=== PATIENT | female | born 1970 ===

== ENCOUNTER 2021-10-01 06:33 | Day surgery (SDC) | payer BC, OTHER ==
--- NOTE | 2021-09-30 15:28 | RAD REPORT ---
EXAM DESCRIPTION: RAD - Chest Pa And Lat (2 Views) - 09/30/2021 3:20 pm CLINICAL HISTORY: Pre op COMPARISON: ABDOMEN ACUTE SERIES dated 11/02/2010 FINDINGS: Lines: None. Lungs: No evidence of edema or pneumonia. Pleural: No significant pleural effusions or pneumothorax. Cardiac: The heart size is within normal limits. Bones: No acute fractures. Other: IMPRESSION: No acute cardiopulmonary disease.
[2021-10-01] MEDS ORDERED: CEFAZOLIN SODIUM 1 GM/VIAL ONE (06:55)
[2021-10-01] MEDS ORDERED: NA CHLORIDE 0.9% 50 ML ONE (06:55)
[2021-10-01] MEDS ORDERED: Ringers Lactate 1,000 ML IV ONE (06:55)
[2021-10-01] MEDS ORDERED: LIDOCAINE 1% MPF 5 ML VIAL ONE (07:12)
[2021-10-01] MEDS ORDERED: propofoL 200 MG/20 ML VIAL IV ONE (07:12)
[2021-10-01] MEDS ORDERED: FENTANYL CITR 100 MCG/2 ML ONE (07:12)
[2021-10-01] MEDS ORDERED: ONDANSETRON 4 MG/2 ML VIAL ONE (07:38)
[2021-10-01] MEDS ORDERED: dexAMETHasone 10 MG/ML VIAL ONE (07:38)
[2021-10-01] MEDS ORDERED: KETOROLAC 30 MG/ML INJ ONE (07:39)
[2021-10-01] MEDS ORDERED: EPHEDRINE SULF 50 MG/ML VIAL ONE (07:40)
[2021-10-01] MEDS ORDERED: Mastisol Adhesive Liq ONE (07:55)
--- NOTE | 2021-10-01 08:08 | P.BOP ---
Preoperative diagnosis: non healing wound with FB Left buttock, upper back digger operator subQ mass Postoperative diagnosis: same Primary procedure: 1. Left buttock wound exploration with sub Q debridement/FB removal [id number] Secondary procedure: 2. Excisional biopsy upper back digger operator SubQ mass 2x2cm Estimated blood loss: <10cc Specimen: back mass, devitalized tissue with tract buttock Findings: see dicta Anesthesia: General Complications: None Fluids & blood products: no blood Transferred to: Recovery Room Condition: Good
[2021-10-01] MEDS ORDERED: MORPHINE 4 MG/ML SYR ONE (08:36)
[2021-10-01] MEDS ORDERED: PROMETHAZINE INJ 25 MG/ML AMP ONE (08:46)
[2021-10-01] MEDS ORDERED: CODEINE 30MG/APAP 300MG TAB ONE (09:20)
[2021-10-01 09:45] VITALS: BP 113/71; TEMP 98.2; O2SAT 100
--- NOTE | 2021-10-01 12:58 | EKG ---
Test Date: 2021-09-30 Test Time: 13:43:08 Film Developer: SHARMAINE MEASUREMENT RESULTS: Intervals: Rate: 69 GA: 186 QRSD: 76 QT: 366 QTc: 392 Antlers: P: 77 GA: 186 QRS: 78 T: 64 INTERPRETIVE STATEMENTS: Normal sinus rhythm Low voltage QRS Borderline ECG No previous ECG available for comparison Electronically Signed On 10-01-21 12:57:32 CDT by Nestor Lawson
--- NOTE | 2021-10-01 23:54 | OP ---
Date of Procedure: 10/01/2021 Surgeon: Prateek Javier MD Preoperative Diagnoses: 1.Nonhealing wound with foreign body on the left buttock. 2.Upper back tender pulp drier subcutaneous mass. Postoperative Diagnoses: 1.Nonhealing wound with foreign body on the left buttock. 2.Upper back tender pulp drier subcutaneous mass. Procedures: 1.Left buttock wound exploration with subcutaneous debridement of devitalized tissue with foreign rohan dy removal, it is about 8 x 3 x 0.1 cm. The foreign body is in the form of scar tissue and powder. 2.Excisional biopsy of upper back tender pulp drier subcutaneous mass, 2 x 2 cm. Specimen: Back mass, devitalized tissue with tract on the buttock. Anesthesia: General plus local. Estimated Blood Loss: Less than 10 cc. Complications: None. Findings: 1.Tract coming from the skin tangential and the subcutaneous tissue going deeper into the fat of the buttocks. The area is about 8 x 3 x 1 cm. This tract has scar tissue present. There is some secre tion coming from that area. There is a white appearance to it. She has some pellets placed on the b ack in the past for weight loss. We just removed the entire tract and this will be examined by patho logist. 2.Excisional biopsy of different upper back tender pulp drier subcutaneous mass. Indications: This is a case of a 51-year-old patient with 2 problems, one is an upper back tender pulp drier lu bcutaneous mass, but the main problem was in the left buttock with chronic drainage, chronic wound. She states this started after she has implanted some pellets to help her in the weight loss more than a year ago. After that, the wound apparently dehisced, became infected. There were multiple debrid ement attempts trying to go into the area of the tract, but was never done in OR. She has area partially open, but it is still draining and still having the tract given her trouble opens ines ry week. The patient want that explored and we offered exploration of that area with removal of what ever foreign body, which in this case may be just little granules or even leftover tattoo from those granules in the past. We might not be able to find the foreign body itself in the 1 piece. We most likely will follow the tract and remove all devitalized tissue present in that area and then let the pathology to see if there is any foreign body retained in that area or foreign body reaction. The lu bcutaneous mass will also going to be removed in that area. Each case was done individually. Procedure In Detail: The patient was brought to the operating room and placed in supine position. A nesthesia was done without complication. The area of concern was marked by me and the patient in the operating room. Previously, we explained to her the benefits and risks of this excision, which incl ude, but not limited to infection, bleeding, damage to adjacent structures, anesthesia complication, nonhealing wound, AR, and even . She also understands this may not relieve symptoms. She might need more than one surgical intervention. She understands she may require wound care in the left bu ttock. The patient was brought to the operating room and placed in supine position. Anesthesia was done without complication. The patient was placed in lateral decubitus position with proper protecti on. We started with the case first, which is the upper back, in which incision was made o n the skin all the way down to the subcutaneous tissue. Mass was completely excised intact and then, we proceeded to close with 3-0 chromic in the subcutaneous tissue and then, 3-0 chromic in the skin after irrigation and hemostasis was obtained. We covered the area with sterile dressings to avoid cr oss-contamination. Then, we went to the left buttock tangential long area. There is a sc ar present in that area. There is a tract that covers areas about 8 x 3 cm with a we can see the tract. We can see how the drainage is coming out and scar hard tissue present in that area, so what we did to avoiding, trying to go inside that tract because of contamination and the previous foreign body in the form of pellet. I went outside and went to normal tissue around the area of conc bejni, removing the entire area, making this a new fresh wound, removing the devitalized tissue and the tract with it. We are going to send that to be checked by the pathologist. After that, we irrigate d the area, obtained hemostasis, and we proceeded to close this in layers, 3-0 chromic in deep layers , immediate layers with 3-0 chromic, and then 4-0 PDS for final closure. The patient tolerated the p rocedure well. The patient was sent to Recovery in stable condition. CALLIE/ANDRES Voice ID: [id number] Report ID: [id number]
--- NOTE | 2021-10-02 00:06 | DS ---
Date of Discharge: 10/01/2021 Diagnoses: A nonhealing wound with devitalized tissue and possible retained foreign body over the le ft buttock and also subcutaneous mass of the upper back mass. Procedure: Left buttock wound exploration, debridement subcutaneously with foreign body on it, tract removal, and also excisional biopsy of upper cloth mercerizer back tender subcutaneous mass. Disposition: Home. Activity: As tolerated. No heavy lifting. Followup: Follow up in my office in 1 week. Call for appointment at [phone]. Her medications include Tylenol No. 3. We are trying to give some limited amount due to history on h er and we tried to help her make sure that we use minimal we can, but at same time, due to her large areas of opening and she may need at least some codeine. As soon as she can, we encouraged her to mo ve to NSAIDs. Also, we gave her a Bactrim. CALLIE/ANDRES Voice ID: [id number] Report ID: [id number]
--- NOTE | 2021-10-04 02:04 | OP ---
Date of Procedure: 10/01/2021 Surgeon: Prateek Javier MD Preoperative Diagnoses: 1.Nonhealing wound with foreign body on the left buttock. 2.Upper back tacker subcutaneous mass. Postoperative Diagnoses: 1.Nonhealing wound with foreign body on the left buttock. 2.Upper back tacker subcutaneous mass. Procedures: 1.Left buttock wound exploration with subcutaneous debridement of devitalized tissue with foreign rohan dy removal, it is about 8 x 3 x 0.1 cm. The foreign body is in the form of scar tissue and powder. 2.Excisional biopsy of upper back tacker subcutaneous mass, 2 x 2 cm. Specimen: Back mass, devitalized tissue with tract on the buttock. Anesthesia: General plus local. Estimated Blood Loss: Less than 10 cc. Complications: None. Findings: 1.Tract coming from the skin tangential and the subcutaneous tissue going deeper into the fat of the buttocks. The area is about 8 x 3 x 1 cm. This tract has scar tissue present. There is some secre tion coming from that area. There is a white appearance to it. She has some pellets placed on the b ack in the past for weight loss. We just removed the entire tract and this will be examined by patho logist. 2.Excisional biopsy of different upper back tacker subcutaneous mass. Indications: This is a case of a 51-year-old patient with 2 problems, one is an upper back tacker lu bcutaneous mass, but the main problem was in the left buttock with chronic drainage, chronic wound. She states this started after she has implanted some pellets to help her in the weight loss more than a year ago. After that, the wound apparently dehisced, became infected. There were multiple debrid ement attempts trying to go into the area of the tract in office, but was never done in OR. She has area partially open, but it is still draining and still having the tract given her trouble o pens every week. The patient want that explored and we offered exploration of that area with removal of whatever foreign body, which in this case may be just little granules or even leftover tattoo fro m those granules in the past. We might not be able to find the foreign body itself in the 1 piece. We most likely will follow the tract and remove all devitalized tissue present in that area and then let the pathology to see if there is any foreign body retained in that area or foreign body reaction. The subcutaneous mass will also going to be removed in that area. Each case was done individually. Procedure In Detail: The patient was brought to the operating room and placed in supine position. A nesthesia was done without complication. The area of concern was marked by me and the patient in the operating room. Previously, we explained to her the benefits and risks of this excision, which incl ude, but not limited to infection, bleeding, damage to adjacent structures, anesthesia complication, nonhealing wound, OR, and even . She also understands this may not relieve symptoms. She might need more than one surgical intervention. She understands she may require wound care in the left bu ttock. The patient was brought to the operating room and placed in supine position. Anesthesia was done without complication. The patient was placed in lateral decubitus position with proper protecti on. We started with the case first, which is the upper back, in which incision was made o n the skin all the way down to the subcutaneous tissue. Mass was completely excised intact and then, we proceeded to close with 3-0 chromic in the subcutaneous tissue and then, 3-0 chromic in the skin after irrigation and hemostasis was obtained. We covered the area with sterile dressings to avoid cr oss-contamination. Then, we went to the left buttock tangential long area. There is a sc ar present in that area. There is a tract that covers areas about 8 x 3 cm with a we can see the tract. We can see how the drainage is coming out and scar hard tissue present in that area, so what we did to avoiding, trying to go inside that tract because of contamination and the previous foreign body in the form of pellet. I went outside and went to normal tissue around the area of conc benji, removing the entire area, making this a new fresh wound, removing the devitalized tissue and the tract with it. We are going to send that to be checked by the pathologist. After that, we irrigate d the area, obtained hemostasis, and we proceeded to close this in layers, 3-0 chromic in deep layers , immediate layers with 3-0 chromic, and then 4-0 PDS for final closure. The patient tolerated the p rocedure well. The patient was sent to Recovery in stable condition. CALLIE/ANDRES Voice ID: [id number] Report ID: [id number]
== END 2021-10-01 09:39 | disposition home or self-care (01) ==
LOC: OR 06:33
PROVIDERS: ATTEND Surgery
PROC: 0JB70ZZ Excision of Back Subcutaneous Tissue and Fascia, Open Approach (ICD-10-PCS; principal; 2021-10-01 07:30)
PROC: 0JB90ZZ Excision of Buttock Subcutaneous Tissue and Fascia, Open Approach (ICD-10-PCS; 2021-10-01 07:30)
DX: L72.0 Epidermal cyst (principal); T85.828A Fibrosis due to other internal prosthetic devices, implants and grafts, initial encounter; L92.3 Foreign body granuloma of the skin and subcutaneous tissue; T81.89XA Other complications of procedures, not elsewhere classified, initial encounter; S31.829A Unspecified open wound of left buttock, initial encounter; Z20.822 Contact with and (suspected) exposure to COVID-19
CPT/HCPCS: 93005; 88304; 71046; 11402; 11406; U0003; J2704; J2550; J3010; J1100; J7120; J2405; J0690